=== PATIENT | male | born 1955 | race Caucasian/White ===

== ENCOUNTER 2022-09-29 13:00 | Outpatient (RCR) | payer MEDICARE, OTHER, SELFPAY ==
[2022-08-13 08:01] VITALS: BMI 38.6
[2022-08-13 09:03] VITALS: BMI 38.6
== END 2022-11-05 08:26 | disposition home or self-care (01) ==
LOC: ANHDMC 13:00
PROVIDERS: PCP Family Medicine; Visit Provider Internal Medicine Endocrinology, Diabetes & Metabolism
DX: E10.65 Type 1 diabetes mellitus with hyperglycemia (principal); Z71.3 Dietary counseling and surveillance; Z71.89 Other specified counseling
CPT/HCPCS: 97802; G0108